=== PATIENT | male | born 1960 | race Caucasian/White ===

== ENCOUNTER → 2021-04-26 | Outpatient (CLI) | payer OTHER ==
[~2021-04-26] VITALS: Ht 177.8 cm; Wt 95.3 kg
[~2021-04-26] MED LIST: ANDROGEL1.25 GM IM; FLONASE 0.05%50 MCG NASAL; GABAPENTIN600 M1 PO; LIPITOR 20 MG T20 M1 PO; NORCO 10-325 T1 EACH PO; NOXIFOL-D32500 UNIT PO; PLAQUENIL200 MG PO; PREDNISONE 20 M20 MG PO; ROXICODONE15 M1 PO
[2021-04-26 10:27] VITALS: BP 162/96
--- NOTE | 2021-04-26 11:10 | NUR ---
Pain Clinic Assessment: 1. History of Osteoarthritis: BACK NECK History of Rheumatoid Arthritis: Not Applicable 2. Height: 5 ft. 10 in. 177.8 cm. Weight: 210.0 lb. oz. 95.256 kg. Patient's BMI: 30.1 3. Vital Signs: BP: 162/96 Pulse: 87 Resp: 16 Temp: 02 Sat: 98 ECG Mon: 4. Pain Intensity: 8 5. Fall Risk: Dizziness: N Needs help standing or walking: Y Fallen in the last 3 months: N Fall risk comments: 6. Patient on Blood Thinner: None 7. History of Hypertension: Y 8. Opioid Therapy greater than 6 weeks: Y Opiate Contract Signed: 9. Risk Assessment Tool Provided: LOW 10. Functional Assessment Tool: 56/ 11. Recreational Drug Use: Unknown Drug Type: Tobacco Use: Current Some Day Smoker Tobacco Type: Cigars Amount or Packs/day: WEEKLY How Many Years: 1 Alcohol Use: Yes Frequency: Weekly Quant: 1-2
--- NOTE | 2021-05-03 14:13 | HPC ---
[facility] [address] [place] [address] PAIN MANAGEMENT CONSULTATION Name: OCTAVIANO BAUMAN Room #: REG LI KernAriannaJosette.#: [id number] Admission: 04/26/21 Attend Phys: Andrei Echeverria DO Discharge: Date of : 58 Report #: [id number] THIS REPORT FOR: cc: Garett Minaya,Andrei Lynn DO ~ cc: Garett Minaya MD DATE OF SERVICE: 04/26/2021 REFERRING PHYSICIAN: Dr. Garett Minaya. CHIEF COMPLAINT: Low back pain, bilateral lower extremity pain with paresthesias. HISTORY OF PRESENT ILLNESS: As you know, the patient is a very pleasant 60-year-old male who has had a longstanding history of low back pain, bilateral lower extremity pain, has progressed over the past 10 years. The patient denies specific injury or trauma that may have led to symptom development. He has trialled conservative treatment including physical therapy, stretching exercise, core strengthening. He has trialed medication management with minimal benefit. He continues to experience symptoms that cause difficulty throughout the day, going about activities of daily living. Due to lack of improvement with conservative treatment options and lack of response to more aggressive treatments, the patient was referred to our clinic to discuss the possibility of looking towards a spinal cord stimulator as a treatment approach. The patient indicates today his pain is continuous and rhythmic. He describes the pain as shooting, cramping, aching, crushing, gnawing, throbbing, pounding, sharp, stabbing, tender, numbness and tingling. Places current pain score at 8/10, daily average at 9/10, worst pain has been is 10/10. The patient states that pain is exacerbated with virtually all activities. Pain is improved only with lying down. He has been referred to our service to discuss interventional treatment options to address lumbar radiculopathy secondary to central canal stenosis. PAST MEDICAL HISTORY: 1. Hypertension. 2. Nephrolithiasis. 3. Degenerative joint disease. 4. Osteoarthritis. 5. Melanoma. 6. Chronic low back pain with lower extremity pain. PAST SURGICAL HISTORY: 1. Rotator cuff repair x4. 2. Cervical fusion. [facility] [address] [place] [address] PAIN MANAGEMENT CONSULTATION Name: OCTAVIANO BAUMAN [facility] [id number] Admission: 04/26/21 Attend Phys: Andrei Echeverria DO Discharge: Date of : 58 Report #: [id number] 3. Lumbar diskectomy. SOCIAL HISTORY: The patient denies tobacco use. Denies IV or illicit drug use. He is working in medical sales representative. He is not receiving workmen's compensation nor is he trying to obtain disability benefits. He is not in litigation in regards to pain. He is accompanied by his significant other, present in room today. REVIEW OF SYSTEMS: Positive for weight gain, decrease in appetite, fatigue and weakness with fever and night, chills, wearing corrective eyewear, loss of appetite, changes in bowel movements with constipation, frequent urination, nocturia, kidney stones, sexual difficulty, numbness and tingling sensations in the lower extremities bilaterally, chronic low back pain, insomnia, glandular and hormonal problems, bleeding and bruising tendencies. All other review of systems negative per 12-point review of systems other than those listed in history of present illness. Pain impact score 56/70, severe interference of daily activities secondary to pain. ALLERGIES: No known drug allergies. CURRENT MEDICATIONS: Gabapentin 600 mg t.i.d., hydrocodone 10/325 one tab p.o. q.4 hours p.r.n. pain, Plaquenil 200 mg twice a day, testosterone 1.5 gram intramuscular, fluticasone 1 spray each nostril per day, atorvastatin 20 mg per day, vitamin D, and folic acid 1 tab per day, prednisone 20 mg once a day, oxycodone 15 mg every 6 hours p.r.n. severe pain. IMAGING: Lumbar spine CT examination with contrast shows L4-L5 left paracentral subarticular protrusion extending into the neural foramen resulting in mass effect upon the exiting L4 nerve root, also contacting the L5 nerve root. Multilevel degenerative changes. There is noted a nonobstructing calculi in the right kidney. PHYSICAL EXAMINATION: VITAL SIGNS: Blood pressure 162/96, pulse 87, respiratory rate 16 and unlabored. The patient 98% on room air. Height 5 feet 10 inches tall, weight 210 pounds, BMI calculated 30.1. GENERAL: Well-developed, well-nourished, well-hydrated 60-year-old male, appearing stated age, placing current pain score at 8/10. HEENT: Normocephalic, atraumatic. Pupils equal, round and responsive to light. He is deemed a good historian. He is wearing a mask in compliance with COVID-19 regulations in hospital policies. LUNGS: Clear, no wheeze, rhonchi or rales. CARDIOVASCULAR: Regular. No appreciable gallop, no rub. ABDOMEN: Soft. [facility] [address] [place] [address] PAIN MANAGEMENT CONSULTATION Name: OCTAVIANO BAUMAN Room #: REG LI Melgar#: [id number] Admission: 04/26/21 Attend Phys: Andrei Echeverria DO Discharge: Date of : 58 Report #: [id number] EXTREMITIES: Show no clubbing, no cyanosis, no edema. MUSCULOSKELETAL: Lower extremity strength equal and symmetrical 5/5. Intact to light touch from L1 through S2 dermatomes. Muscle bulk and tone is equal and symmetrical in comparing lower extremities. Seated straight leg raising negative. Supine straight leg raising positive on the left. Niesha's test is negative. Modified Gaenslen's positive for axial low back pain. Ankle clonus negative. Babinski is negative. Well-healed surgical scar over the lumbar spine. Gait is mildly antalgic, appears to be favoring left lower extremity over right. ASSESSMENT: 1. Symptomatic lumbar radiculopathy. 2. Neural foraminal stenosis of lumbar spine. 3. Degeneration of lumbar spine. 4. Lumbosacral spondylosis with radiculopathy. 5. Facet arthropathy of lumbar spine. 6. Chronic intractable pain. PLAN: 1. Based on today's physical exam and history the patient has provided, the description the patient uses in regards to pain as well as location of symptoms and the descriptors he uses in regards to symptoms, likely source of the patient's pain is a lumbar radiculopathy. The patient and I discussed at length today, the various treatment options, we have to address lumbar radicular symptoms. Following was discussed with the patient today. We discussed physical therapy, stretching exercises and core strengthening as a treatment approach. We discussed suggestions and medication management with elevated doses of neuropathic medications to address neuropathic symptoms, such as amitriptyline, nortriptyline, Cymbalta to be added to her current gabapentin dose or escalating gabapentin dose or rotating over to the Lyrica. We discussed epidural injections under fluoroscopic guidance to address symptoms as rapidly as possible. We also discussed spinal cord stimulator therapy for which the patient was referred to our clinic to discuss options. We ultimately discussed surgical decompression. After reviewing risks and benefits of all proposed treatment options, the patient chose to move forward with a spinal cord stimulator trial. 2. The patient was given information both digitally and in written form to evaluate and review the different processes and options for spinal cord stimulator technology. We gave him information both on the Nevro device and the [employer]tronic device. The patient will review those informations at his earliest convenience. 3. The patient will be sent for psychiatric evaluation as part of the workup for a spinal cord stimulator trial. The patient will make an appointment with Psychiatry as quickly as possible once he has completed that process and we have reviewed the paperwork and there is no concerning psychopathology, [place] [address] PAIN MANAGEMENT CONSULTATION Name: OCTAVIANO BAUMAN Room #: REG CLI Ramón#: [id number] Admission: 04/26/21 Attend Phys: Andrei Echeverria DO Discharge: Date of : 58 Report #: [id number] move forward planning the trial implantation. The patient was given the names and numbers of psychiatrist in the area that do the testing for us. Once that is completed, he is to contact our clinic, so we can look for those results. 4. No medication changes made at today's visit. The patient will continue current medical therapy as prior prescribed. 5. We will see the patient back in followup visit once he has finished a psychiatric evaluation. We will review those findings and discuss those findings with the patient if he is deemed an appropriate candidate from a psychological standpoint, we would then begin scheduling the process of spinal cord stimulator trial implantation. 6. We wish thank Dr. Garett Minaya for the opportunity to see this patient in consultation. We will keep you apprised of his response to treatment as we address lumbar radicular symptoms. Again, we wish to thank you for the opportunity to see the patient in consultation. <ELECTRONICALLY SIGNED> By: Andrei Echeverria DO 05/03/21 [id number] Andrei Echeverria DO /nt
== END ==
LOC: PAIN 09:52
PROVIDERS: ATTEND Anesthesiology Pain Medicine
DX: G89.29 Other chronic pain (principal); M51.16 Intervertebral disc disorders with radiculopathy, lumbar region; M47.27 Other spondylosis with radiculopathy, lumbosacral region; M47.26 Other spondylosis with radiculopathy, lumbar region; M48.061 Spinal stenosis, lumbar region without neurogenic claudication; M79.604 Pain in right leg; M79.605 Pain in left leg; I10 Essential (primary) hypertension; Z79.899 Other long term (current) drug therapy